=== PATIENT | female | born 1985 | race Caucasian/White ===

== ENCOUNTER → 2017-05-04 | Outpatient (CLI) | payer OTHER ==
[~2017-05-04] MED LIST: ACETAMINOPHEN325 M1 PO; BIRTH CONTROL TABS; CARISOPRODOL 3350 MG PO; CAVAN-FOLATE D1 EACH PO; CELEXA20 MG PO; COLACE 100 MG100 MG; IBUPROFEN 800800 M1 PO; LANSINOH 60 GM60 GM TOP; NAPROSYN375 MG PO; PERCOCET 5-3251 EACH PO; PRENATAL PO; TENORMIN25 MG PO; TUCKS MEDICATE1 EAC2; VICODIN ES TAB1 EACH PO; ZOFRAN4 MG PO; [UNRECOGNIZED DRUG - OTHER]
[2017-05-04 09:22] LABS: ABSOLUTE EOSINOPHILS 0.1 thou/uL (0.0-0.7); ABSOLUTE LYMPHOCYTES 1.7 thou/uL (0.8-5.3); ABSOLUTE MONOCYTES 0.3 thou/uL (0.0-1.2); ABSOLUTE NEUTROPHILS 2.4 thou/uL (1.6-8.1); BASOPHILS 0.5 %; EOSINOPHILS 1.9 %; HEMATOCRIT 41.3 % (37.0-47.0); HEMOGLOBIN 13.7 gm/dL (12.0-15.0); LYMPHOCYTES 38.7 %; MCH 28.6 pg (26.0-34.0); MCHC 33.1 g/dL (28.0-37.0); MCV 86.2 fL (80.0-100.0); MONOCYTES 6.5 %; MPV 8.5 fl. (7.2-11.1); NUCLEATED RBCS 0 /100WBC; PLATELET COUNT* 231 thou/uL (150-400); POLYS 52.4 %; RBC 4.79 mil/uL (4.20-5.00); RDW-CV 12.6 % (10.5-14.5); WBC 4.5 thou/uL (4.0-11.0)
[2017-05-04 09:49] LABS: ALBUMIN 3.6 g/dL (3.4-5.0); CALCIUM 8.8 mg/dL (8.5-10.1); CREATININE 0.8 mg/dL (0.6-1.3); POTASSIUM 4.4 mmol/L (3.5-5.1); TOTAL BILIRUBIN 0.3 mg/dL (<0.1-1.0); TOTAL PROTEIN 7.5 g/dL (6.4-8.2)
[2017-05-04 17:09] LABS: TESTOSTERONE 20 ng/dL (8-48)
== END ==
LOC: M.LAB 08:53
PROVIDERS: Nurse Practitioner Family
DX: Z00.01 Encounter for general adult medical examination with abnormal findings (principal); L65.8 Other specified nonscarring hair loss; R73.09 Other abnormal glucose; R53.83 Other fatigue

== ENCOUNTER → 2017-12-14 | Outpatient (CLI) | payer OTHER | LOC: M.RAD 16:50 | DX: I82.890 Acute embolism and thrombosis of other specified veins (principal) ==

== ENCOUNTER → 2017-12-15 | Outpatient (CLI) | payer OTHER | LOC: M.CT 16:59 | DX: K76.0 Fatty (change of) liver, not elsewhere classified (principal) ==

== ENCOUNTER → 2017-12-31 | Outpatient (CLI) | payer OTHER | LOC: M.LAB 15:10 | DX: R14.0 Abdominal distension (gaseous) (principal) ==

== ENCOUNTER → 2018-01-18 | Outpatient (CLI) | payer OTHER ==
[2018-01-18 18:01] LABS: HEMATOCRIT 41.2 % (37.0-47.0); HEMOGLOBIN 13.8 gm/dL (12.0-15.0); MCHC 33.4 g/dL (28.0-37.0); MCV 86.7 fL (80.0-100.0); MPV 8.1 fl. (7.2-11.1); RBC 4.75 mil/uL (4.20-5.00); RDW-CV 12.9 % (10.5-14.5); WBC 6.8 thou/uL (4.0-11.0)
[2018-01-18 18:12] LABS: ALBUMIN 3.8 g/dL (3.4-5.0); CALCIUM 8.7 mg/dL (8.5-10.1); CREATININE 0.8 mg/dL (0.6-1.3); POTASSIUM 3.6 mmol/L (3.5-5.1); TOTAL BILIRUBIN 0.2 mg/dL (<0.1-1.0); TOTAL PROTEIN 7.9 g/dL (6.4-8.2)
[2018-01-19 02:06] LABS: eGFR IF AFRICAN AMERICAN 121 (>59)
[2018-01-19 05:10] LABS: PROLACTIN 15.3 ng/mL (4.8-23.3)
[2018-01-19 06:05] LABS: PARATHYROID HORMONE 40 pg/mL (15-65)
== END ==
LOC: M.LAB 17:21
PROVIDERS: Nurse Practitioner Family
DX: E04.9 Nontoxic goiter, unspecified (principal); K59.00 Constipation, unspecified; R10.84 Generalized abdominal pain